=== PATIENT | female | born 1935 | race Caucasian/White ===

== ENCOUNTER 2019-10-15 02:03 | Inpatient (IN) ==
[2019-10-15] MEDS ORDERED: Naloxone 0.4 MG/ML INJ IVP PRN (04:31)
[2019-10-15] MEDS ORDERED: Ondansetron 4 MG/2 ML VIAL IVP PRN (07:34)
[2019-10-15 08:25] LABS: Hemoglobin 7.7 g/dL (11.5-15.4); Mean Corpuscular HGB Conc 30.8 g/dL (31.6-35.5); Mean Corpuscular Hemoglobin 32.9 pg (28.0-33.3); Mean Corpuscular Volume 106.8 fL (83.0-100.0); Mean Platelet Volume 10.3 fL (9.4-12.4); Platelet Count 339 K/mcL (140-400); Red Blood Count 2.34 M/mcL (3.82-4.97); Red Cell Distribution Width 12.9 % (11.5-14.5)
[2019-10-15 08:33] LABS: INR 1.1; Prothrombin Time 12.4 Seconds (9.4-12.1)
[2019-10-15 08:35] LABS: Activated Partial Thrombo Time 27.8 Seconds (26.0-36.0)
[2019-10-15 08:50] LABS: Albumin 3.4 g/dL (3.5-5.7); Albumin/Globulin Ratio 1.5 (1.1-2.2); Bilirubin,Total 0.2 mg/dL (0.3-1.0); Calcium 8.3 mg/dL (8.6-10.3); Globulin 2.3 g/dL (2.4-3.5); Potassium 4.5 mEq/L (3.5-5.1); Total Protein 5.7 g/dL (6.4-8.9)
[2019-10-15] MEDS ORDERED: 0.9 % Sodium Chloride 1,000 ML IVC ONE (09:00)
[2019-10-15] MEDS: Pantoprazole 40 MG in 0.9 % Sodium Chloride Mini Bag 100 ML IVC SCH ×3 (09:47→17:41)
[2019-10-15] MEDS: MetroNIDAZOLE 500 MG/100 ML 500 MG/100 ML BAG IVPB SCH ×2 (12:12→16:48)
[2019-10-15] MEDS: 0.9 % Sodium Chloride 1,000 ML IVC SCH ×2 (12:14→19:58)
[2019-10-15] MEDS ORDERED: 0.9 % Sodium Chloride 250 ML ONE ×2 (12:55→16:20)
[2019-10-15] MEDS ORDERED: *HR* Propofol 200 MG/20 ML VIAL IVP ONE (13:10)
[2019-10-15] MEDS ORDERED: *HR* Etomidate 40 MG/20 ML VIAL IVP ONE (13:10)
[2019-10-15] MEDS ORDERED: Lidocaine -MPF 2% 2 ML VIAL ONE (13:13)
[2019-10-15] MEDS ORDERED: Albuterol 2.5 MG/3 ML NEBULIZER IH PRN (15:51)
[2019-10-15] MEDS ORDERED: SODIUM CHLORIDE/NAHCO3/KCL/PEG 4,000 ML SOLN.RECON PO ONE (17:00)
[2019-10-15 17:08] LABS: Hematocrit 25.1 % (35.3-44.9); Hemoglobin 7.7 g/dL (11.5-15.4)
[2019-10-15] MEDS ORDERED: Pantoprazole 40 MG VIAL IVP SCH (18:00)
[2019-10-15 21:23] LABS: Hematocrit 32.7 % (35.3-44.9)
[2019-10-15 21:24] LABS: Hemoglobin 10.3 g/dL (11.5-15.4)
[2019-10-16] MEDS: Pantoprazole 40 MG in 0.9 % Sodium Chloride Mini Bag 100 ML IVC SCH ×3 (00:19→09:54)
[2019-10-16] MEDS: MetroNIDAZOLE 500 MG/100 ML 500 MG/100 ML BAG IVPB SCH ×3 (02:23→17:44)
[2019-10-16 03:11] LABS: Hematocrit 28.8 % (35.3-44.9)
[2019-10-16 04:35] LABS: BUN/Creatinine Ratio 30 (6-26); Blood Urea Nitrogen 31 mg/dL (8-23); Calcium 7.1 mg/dL (8.6-10.3); Carbon Dioxide 16 mEq/L (23-29); Chloride 117 mEq/L (98-107); Glucose 110 mg/dL (70-105); Osmolality,Calculated 293 (280-300); Potassium 3.9 mEq/L (3.5-5.1); Sodium 138 mEq/L (136-145); eGFR For African Americans > 60 (> 60); eGFR For Non-African Americans 50 (> 60)
[2019-10-16 05:26] LABS: Basophils # 0.1 K/mcL (0.0-0.2); Basophils % 0.5 %; Eosinophils % 0.2 %; Hematocrit 26.5 % (35.3-44.9); Hemoglobin 8.6 g/dL (11.5-15.4); Immature Granulocytes % 0.7 % (0-4); Lymphocytes # 2.4 K/mcL (0.6-4.6); Lymphocytes % 23.9 %; Mean Corpuscular HGB Conc 32.5 g/dL (31.6-35.5); Mean Corpuscular Hemoglobin 32.5 pg (28.0-33.3); Mean Platelet Volume 10.2 fL (9.4-12.4); Monocytes # 0.9 K/mcL (0.0-1.3); Monocytes % 8.7 %; Neutrophils # 6.6 K/mcL (1.6-8.9); Platelet Count 202 K/mcL (140-400); Red Blood Count 2.65 M/mcL (3.82-4.97); Red Cell Distribution Width 16.3 % (11.5-14.5)
[2019-10-16] MEDS ORDERED: Dextrose Gel 15 GM/37.5 ML TUBE PO PRN ×2 (07:37)
[2019-10-16] MEDS ORDERED: D5% in Water 1,000 ML IVC PRN (07:37)
[2019-10-16] MEDS ORDERED: *HR* Dextrose 50 % in Water (Syg) 50 ML SYRINGE IVP PRN (07:37)
[2019-10-16] MEDS ORDERED: amLODIPine 5 MG TABLET PO SCH (09:00)
[2019-10-16] MEDS: Tiotropium 18 MCG inhalation IH SCH (10:59)
[2019-10-16] MEDS: Insulin LISPRO 300 UNITS/3 ML VIAL SQ SCH ×2 (11:58→17:38)
[2019-10-17] MEDS: MetroNIDAZOLE 500 MG/100 ML 500 MG/100 ML BAG IVPB SCH ×3 (02:23→16:51)
[2019-10-17 03:54] LABS: Hematocrit 24.3 % (35.3-44.9); Hemoglobin 7.8 g/dL (11.5-15.4)
[2019-10-17 04:19] LABS: BUN/Creatinine Ratio 15 (6-26); Blood Urea Nitrogen 11 mg/dL (8-23); Calcium 7.3 mg/dL (8.6-10.3); Carbon Dioxide 23 mEq/L (23-29); Chloride 113 mEq/L (98-107); Glucose 93 mg/dL (70-105); Magnesium 1.5 mg/dL (1.6-2.6); Osmolality,Calculated 285 (280-300); Phosphorous 2.1 mg/dL (2.7-4.5); Potassium 2.9 mEq/L (3.5-5.1); Sodium 138 mEq/L (136-145); eGFR For African Americans > 60 (> 60); eGFR For Non-African Americans > 60 (> 60)
[2019-10-17] MEDS ORDERED: Potassium Phosphate 44 MEQ in 0.9 % Sodium Chloride 250 ML IVPB ONE (07:10)
[2019-10-17] MEDS: amLODIPine 5 MG TABLET PO SCH (08:07)
[2019-10-17] MEDS: lisinopriL 20 MG TABLET PO SCH (08:08)
[2019-10-17] MEDS: Tiotropium 18 MCG inhalation IH SCH (08:40)
[2019-10-17] MEDS ORDERED: Pantoprazole 40 MG VIAL IVP SCH (09:00)
[2019-10-17 17:30] LABS: Hematocrit 27.4 % (35.3-44.9); Hemoglobin 8.8 g/dL (11.5-15.4)
[2019-10-18] MEDS ORDERED: Melatonin 3 MG TABLET PO ONE (00:56)
[2019-10-18] MEDS: MetroNIDAZOLE 500 MG/100 ML 500 MG/100 ML BAG IVPB SCH ×2 (01:20→09:46)
[2019-10-18 05:09] LABS: Basophils % 0.5 %; Eosinophils # 0.2 K/mcL (0.0-0.6); Eosinophils % 2.2 %; Hematocrit 23.1 % (35.3-44.9); Hemoglobin 7.3 g/dL (11.5-15.4); Immature Granulocytes % 0.8 % (0-4); Lymphocytes % 26.2 %; Mean Corpuscular HGB Conc 31.6 g/dL (31.6-35.5); Mean Corpuscular Hemoglobin 31.9 pg (28.0-33.3); Mean Corpuscular Volume 100.9 fL (83.0-100.0); Mean Platelet Volume 9.9 fL (9.4-12.4); Monocytes # 0.6 K/mcL (0.0-1.3); Monocytes % 8.6 %; Neutrophils # 4.6 K/mcL (1.6-8.9); Platelet Count 188 K/mcL (140-400); Red Blood Count 2.29 M/mcL (3.82-4.97); Segmented Neutrophils % 61.7 %; White Blood Count 7.4 K/mcL (4.3-11.1)
[2019-10-18 05:31] LABS: BUN/Creatinine Ratio 15 (6-26); Blood Urea Nitrogen 13 mg/dL (8-23); Calcium 7.6 mg/dL (8.6-10.3); Carbon Dioxide 23 mEq/L (23-29); Chloride 111 mEq/L (98-107); Glucose 108 mg/dL (70-105); Magnesium 1.8 mg/dL (1.6-2.6); Osmolality,Calculated 289 (280-300); Phosphorous 3.6 mg/dL (2.7-4.5); Potassium 3.7 mEq/L (3.5-5.1); Sodium 139 mEq/L (136-145); eGFR For African Americans > 60 (> 60); eGFR For Non-African Americans > 60 (> 60)
[2019-10-18] MEDS ORDERED: 0.9 % Sodium Chloride 250 ML IVC SCH (07:30)
[2019-10-18] MEDS: Tiotropium 18 MCG inhalation IH SCH (07:48)
[2019-10-18] MEDS: lisinopriL 20 MG TABLET PO SCH (08:17)
[2019-10-18] MEDS: amLODIPine 5 MG TABLET PO SCH (08:17)
[2019-10-18] MEDS ORDERED: 0.9 % Sodium Chloride 250 ML ONE (11:38)
[2019-10-18] MEDS: metroNIDAZOLE 500 MG TABLET PO SCH (17:04)
[2019-10-18 17:51] LABS: Hematocrit 35.6 % (35.3-44.9)
[2019-10-19] MEDS: metroNIDAZOLE 500 MG TABLET PO SCH ×2 (01:48→08:46)
[2019-10-19 03:19] LABS: BUN/Creatinine Ratio 19 (6-26); Blood Urea Nitrogen 17 mg/dL (8-23); Calcium 8.2 mg/dL (8.6-10.3); Carbon Dioxide 22 mEq/L (23-29); Chloride 111 mEq/L (98-107); Glucose 93 mg/dL (70-105); Magnesium 1.7 mg/dL (1.6-2.6); Osmolality,Calculated 283 (280-300); Phosphorous 3.3 mg/dL (2.7-4.5); Sodium 136 mEq/L (136-145); eGFR For African Americans > 60 (> 60); eGFR For Non-African Americans > 60 (> 60)
[2019-10-19 03:21] LABS: % Iron Saturation 16 % (15-50); Iron 39 mcg/dL (50-170); Transferrin 178 mg/dL (203-362)
[2019-10-19 03:46] LABS: Folate > 22.3 ng/mL (3.0-16.0); Vitamin B12 445 pg/mL (250-1100)
[2019-10-19 04:23] LABS: Hematocrit 28.5 % (35.3-44.9)
[2019-10-19 04:24] LABS: Hemoglobin 9.2 g/dL (11.5-15.4)
[2019-10-19 06:36] VITALS: BP 144/68
[2019-10-19] MEDS: Tiotropium 18 MCG inhalation IH SCH (08:12)
[2019-10-19] MEDS: lisinopriL 20 MG TABLET PO SCH (08:46)
[2019-10-19] MEDS: amLODIPine 5 MG TABLET PO SCH (08:46)
== END 2019-10-19 10:05 | disposition home or self-care (01) | DRG 378 ==
LOC: 2ANU → SUATTDRO 03:48
PROVIDERS: ADMIT Student in an Organized Health Care Education/Training Program; ATTEND Internal Medicine